=== PATIENT | female | born 1990 | race Caucasian/White ===

== ENCOUNTER 2017-05-16 05:42 | Inpatient (IN) | payer MEDICAID ==
[~2017-05-16] VITALS: Ht 167.6 cm; Wt 69.4 kg
[2017-05-16 06:27] LABS: BASOPHILS % 0.6 % (0.0-2.0); EOSINOPHILS % 5.8 % (0.0-5.0); HEMATOCRIT. 37.7 % (36.0-48.0); HEMOGLOBIN. 12.6 g/dL (12.0-16.0); LYMPHOCYTES % 32.4 % (20.0-50.0); MEAN CORPUSCULAR HEMOGLOBIN 26.6 pg (28.0-32.0); MEAN CORPUSCULAR VOLUME 79.9 fL (81.0-99.0); MEAN PLATELET VOLUME 7.3 fl (7.4-10.4); MONOCYTES % 10.4 % (2.0-8.0); NEUTROPHILS % 50.8 % (40.0-76.0); PLATELET 294 x1000/uL (130-400); RED BLOOD CELL COUNT 4.72 mill/uL (4.2-5.4); RED CELL DISTRIBUTION WIDTH 14.2 % (11.6-14.6)
[2017-05-16 06:28] LABS: CLARITY URINE CLEAR (CLEAR); COLOR URINE YELLOW (YELLOW); GLUCOSE URINE NEGATIVE (NEGATIVE); KETONES URINE NEGATIVE (NEGATIVE); LEUKOCYTE ESTERASE URINE NEGATIVE (NEGATIVE); NITRITE URINE NEGATIVE (NEGATIVE); OCCULT BLOOD URINE NEGATIVE (NEGATIVE); PROTEIN URINE NEGATIVE (NEGATIVE); SPECIFIC GRAVITY URINE 1.016 (1.005-1.030); UROBILINOGEN URINE 0.2 E.U./dL (0.2-1.0)
[2017-05-16 06:36] LABS: INR 0.9; PARTIAL THROMBOPLASTIN TIME 28.2 sec (23.4-31.0); PROTHROMBIN TIME 9.9 sec (9.4-11.6)
[2017-05-16 06:44] LABS: CARBON DIOXIDE 24 mEq/L (21-32); CHLORIDE 108 mEq/L (98-107)
[2017-05-16 06:53] LABS: UCG SCREEN NEGATIVE
[2017-05-16] MEDS ORDERED: LACTATED RINGERS 1,000 ML IV SCH (07:00)
[2017-05-16] MEDS ORDERED: METHYLENE BLUE 50 MG/10 ML AMP IV ONE ×2 (07:00→07:03)
[2017-05-16] MEDS ORDERED: VASOPRESSIN 20 UNIT/ML 1ML ONE (07:04)
[2017-05-16] MEDS ORDERED: BUPIVACAINE HCL 0.5% (5MG/ML) 50ML ONE (07:04)
[2017-05-16] MEDS ORDERED: SUCCINYLCHOLINE CHLORIDE 200MG/10ML VIAL IV ONE (09:41)
[2017-05-16] MEDS ORDERED: DEXAMETHASONE 4MG/ML 1ML VIAL ONE (09:41)
[2017-05-16] MEDS ORDERED: PROPOFOL 200MG/20ML VIAL IV ONE (09:41)
[2017-05-16] MEDS ORDERED: LIDOCAINE HCL 1% 20ML VIAL (Pyxis) INJ ONE (09:41)
[2017-05-16] MEDS ORDERED: VECURONIUM BROMIDE 10 MG/VIAL IV ONE (09:41)
[2017-05-16] MEDS ORDERED: PHENYLEPHRINE HCL 10 MG/ML 1ML (IV VIAL) IV ONE (09:41)
[2017-05-16] MEDS ORDERED: FENTANYL CITRATE/PF 50MCG/ML 2ML VIAL ONE ×2 (09:59→11:02)
[2017-05-16] MEDS ORDERED: GLYCOPYRROLATE 0.2 MG/ML 2ML VIAL ONE (10:44)
[2017-05-16] MEDS ORDERED: CEFAZOLIN SODIUM 1000MG/VIAL ONE (10:44)
[2017-05-16] MEDS ORDERED: NEOSTIGMINE METHYLSULFATE 1MG/ML 10 ML VIAL ONE (10:45)
[2017-05-16] MEDS ORDERED: KETOROLAC 30MG/ML VIAL ONE (10:45)
[2017-05-16] MEDS ORDERED: ONDANSETRON HCL 4MG/2ML VIAL ONE (10:48)
[2017-05-16] MEDS ORDERED: IBUPROFEN 600MG TABLET PO PRN (11:00)
[2017-05-16] MEDS ORDERED: MORPHINE SULFATE 2 MG/ML CPJ (NOT FOR IM USE) IV PRN (11:00)
[2017-05-16] MEDS ORDERED: ONDANSETRON HCL 4MG/2ML VIAL IV PRN (11:45)
[2017-05-16] MEDS: HYDROMORPHONE HCL/PF 2MG/ML CPJ IV PRN ×4 (12:03→12:56)
[2017-05-16 14:00] VITALS: BP 117/63
[2017-05-16 15:20] VITALS: BP 109/54
[2017-05-16] MEDS ORDERED: MORPHINE SULFATE 4 MG/ML CPJ (NOT FOR IM USE) IV PRN ×2 (15:30)
[2017-05-16] MEDS: MORPHINE SULFATE 4 MG/ML CPJ (NOT FOR IM USE) IV PRN ×2 (15:39→21:40)
[2017-05-17] VITALS: BP 110/62
[2017-05-17 04:00] VITALS: BP 103/65
[2017-05-17] MEDS: MORPHINE SULFATE 4 MG/ML CPJ (NOT FOR IM USE) IV PRN ×3 (05:15→16:43)
[2017-05-17 06:39] LABS: BASOPHILS % 0.2 % (0.0-2.0); EOSINOPHILS % 0.6 % (0.0-5.0); HEMATOCRIT. 30.5 % (36.0-48.0); HEMOGLOBIN. 10.2 g/dL (12.0-16.0); LYMPHOCYTES % 17.1 % (20.0-50.0); MEAN CORPUSCULAR HEMOGLOBIN 27.1 pg (28.0-32.0); MEAN CORPUSCULAR VOLUME 80.6 fL (81.0-99.0); MEAN PLATELET VOLUME 7.8 fl (7.4-10.4); NEUTROPHILS % 70.1 % (40.0-76.0); PLATELET 265 x1000/uL (130-400); RED BLOOD CELL COUNT 3.78 mill/uL (4.2-5.4); RED CELL DISTRIBUTION WIDTH 14.2 % (11.6-14.6)
[2017-05-17 08:00] VITALS: BP 106/66
[2017-05-17] MEDS: IBUPROFEN 800MG TABLET PO PRN ×2 (13:39→22:48)
[2017-05-17 14:00] VITALS: BP 117/63
[2017-05-17 20:00] VITALS: BP 94/55
[2017-05-18] VITALS: BP 100/72
[2017-05-18 04:00] VITALS: BP 91/53
[2017-05-18] MEDS: IBUPROFEN 800MG TABLET PO PRN ×3 (04:38→23:10)
[2017-05-18 07:24] VITALS: BP 90/49
[2017-05-18 11:28] VITALS: BP 110/62
[2017-05-18] MEDS ORDERED: BISACODYL 10MG SUPP PR NR (15:45)
[2017-05-18 20:00] VITALS: BP 115/70
[2017-05-19] VITALS: BP 96/58
[2017-05-19 04:00] VITALS: BP 96/58
[2017-05-19 08:00] VITALS: BP 120/70
[2017-05-19 08:42] VITALS: BP 120/70
== END 2017-05-19 11:55 | disposition home or self-care (01) | DRG 513 ==
LOC: OR 05:42 → 6EST 05:43
PROVIDERS: ADMIT Obstetrics & Gynecology; ATTEND Obstetrics & Gynecology
PROC: 0UB00ZZ Excision of Right Ovary, Open Approach (ICD-10-PCS; principal; 2017-05-16 07:30)
DX: N80.1 Endometriosis of ovary (principal); D64.9 Anemia, unspecified; Z82.49 Family history of ischemic heart disease and other diseases of the circulatory system; Z79.899 Other long term (current) drug therapy
CPT/HCPCS: 36415; 80053; 81003; 81025; 85025; 85610; 85730; 86850; 86900; 88304; 88331; J0330; J0690; J1100; J1170; J1885; J2270; J2370; J2405; J2704; J2710; J3010; J3490; J7120; Q9968